=== PATIENT | male | born 1995 | race African-American/Black ===

== ENCOUNTER 2022-10-23 12:42 | Emergency (ER) | payer OTHER, SELFPAY ==
[~2022-10-23] VITALS: Ht 170.2 cm; Wt 73.9 kg
[2022-10-23] MEDS ORDERED: AMOX500C PO (14:49)
[2022-10-23 14:57] VITALS: BP 129/65
== END 2022-10-23 14:58 | disposition home or self-care (01) ==
LOC: M ED 12:42
DX: J02.0 Streptococcal pharyngitis (principal); Z79.2 Long term (current) use of antibiotics

== ENCOUNTER → 2022-11-30 | Outpatient (REF) | payer OTHER ==
[~2022-11-30] MED LIST: AMOX500C PO
[2022-11-30 19:41] LABS: GC DNA AMPLIFICATION NEGATIVE (NEGATIVE)
== END ==
LOC: M LAB REF 16:26
PROVIDERS: ATTEND Physician Assistant
DX: Z20.2 Contact with and (suspected) exposure to infections with a predominantly sexual mode of transmission (principal)

== ENCOUNTER → 2025-04-22 | Outpatient (CLI) | payer OTHER ==
[2025-04-22 19:30] LABS: GC DNA AMPLIFICATION NEGATIVE (NEGATIVE)
[2025-04-22 20:36] LABS: Trichomonas vaginalis (AMP) NOT DETECTED (NEGATIVE)
== END ==
LOC: M LAB 15:58
PROVIDERS: ATTEND Physician Assistant
DX: Z20.2 Contact with and (suspected) exposure to infections with a predominantly sexual mode of transmission (principal)